=== PATIENT | female | born 1985 | race Caucasian/White ===

== ENCOUNTER 2016-06-19 08:58 | Emergency (ER) | payer OTHER ==
[2016-06-19 09:31] VITALS: BP 112/64; PULSE 68; TEMP 98.1; BMI 26.5
--- NOTE | 2016-06-19 11:29 | PDOC ---
History of Present Illness - General Chief Complaint: Headache Stated Complaint: HEADACHES Time Seen by Provider: 06/19/16 10:10 History Source: Patient Exam Limitations: No Limitations - History of Present Illness Initial Comments: 06/19/16 11:24 cc HEAD ACHE POST FALL WHILE HITTING HEAD SLEILDING X 1 DAY Associated Symptoms: denies: fever/chills, loss of consciousness, nausea/ vomiting, numbness in legs/feet, slurred speech Past History - Past Medical History Allergies/Adverse Reactions: Allergies Allergy/AdvReac Type Severity Reaction Status Date / Time Penicillins Allergy Intermediate Rash Verified 06/19/16 09:27 Home Medications: Ambulatory Orders NK [No Known Home Medication] 06/19/16 Asthma: Yes Other medical history: cyst on brain - Immunization History Immunization Up to Date: Yes - Psycho/Social/Smoking Cessation Hx Anxiety: No Suicidal Ideation: No Smoking History: Never smoked Have you smoked in the past 12 months: No Information on smoking cessation initiated: No Hx Alcohol Use: No Drug/Substance Use Hx: No Substance Use Type: Alcohol Hx Substance Use Treatment: No Review of Systems - Review of Systems Constitutional: No: Symptoms Reported, Chills, Fever, Malaise HEENTM: No: Symptoms Reported Respiratory: No: Symptoms reported, Cough Cardiac (ROS): No: Symptoms Reported Musculoskeletal: Yes: Other (TENDER RIGHT OCCIPUT) Integumentary: No: Symptoms Reported *Physical Exam - Vital Signs Last Vital Signs Temp Pulse Resp BP Pulse Ox 98.1 F 68 20 112/64 100 06/19/16 09:29 06/19/16 09:29 06/19/16 09:29 06/19/16 09:29 06/19/16 09:29 - Physical Exam General Appearance: Yes: Appropriately Dressed. No: Apparent Distress HEENT: negative: TMs Normal Neck: positive: Supple. negative: Tender, Rigid, Tender lateral, Tender midline Respiratory/Chest: positive: Lungs Clear. negative: Chest Tender Integumentary: positive: Bruising Neurologic: positive: records analyst II-XII NML intact, Fully Oriented, Alert. negative: Abnormal Cranial NS, Facial Droop, Numbness, Sensory Deficit ED Treatment Course - ADDITIONAL ORDERS Additional order review: Laboratory Results 06/19/16 10:14 Urine HCG, Qual Negative - RADIOLOGY Radiology Studies Ordered: Category Date Time Status HEAD CT WITHOUT CONTRAST [CT] Stat CT Scan 06/19/16 10:18 Completed Medical Decision Making - Medical Decision Making 06/19/16 11:27 NO SERIAL CHANGES NOTED ON CT SCAN HEAD *DC/Admit/Observation/Transfer Diagnosis at time of Disposition: Minor closed head injury - Discharge Dispostion Disposition: HOME Condition at time of disposition: Stable Admit: No - Patient Instructions Additional Instructions: PLEASE NOTIFY NEUROLOGIST A REPEAT CT SCAN WAS DONE TODAY POST TRAUMA, AND CAN SERVE FOLLOW UP ON EXISTING CYST - Post Discharge Activity Work/School Note: Back to Work
== END 2016-06-19 11:39 | disposition home or self-care (01) ==
LOC: JERFT 08:58
DX: S09.8XXA Other specified injuries of head, initial encounter (principal); W19.XXXA Unspecified fall, initial encounter; Y93.23 Activity, snow (alpine) (downhill) skiing, snowboarding, sledding, tobogganing and snow tubing; Y92.89 Other specified places as the place of occurrence of the external cause
CPT/HCPCS: 70450-TC; 84703; 99281-25

== ENCOUNTER 2017-10-25 07:30 | Day surgery (SDC) | payer OTHER ==
[2017-10-24 11:52] VITALS: BMI 26.4
[2017-10-25] MEDS ORDERED: MIDAZOLAM HCL 2 MG/2 ML SINGLE DOSE VIAL ONE (09:54)
[2017-10-25] MEDS ORDERED: PROPOFOL 20 ML ONE (09:54)
[2017-10-25] MEDS ORDERED: LIDOCAINE HCL/PF 2% SDV 5ML VIAL ONE (10:01)
--- NOTE | 2017-10-25 10:01 | HP ---
History & Physical Update - History History: No Change - Physical Physical: No Change - Assessment Assessment: No Change - Plan Plan: No Change (H & P UPDATED FROM 10/17/17)
[2017-10-25] MEDS ORDERED: CLINDAMYCIN PHOSPHATE 600 MG/4 ML VIAL ONE (10:11)
[2017-10-25] MEDS ORDERED: CLINDAMYCIN 600 MG PREMIX BAG IVPB ONE (10:12)
[2017-10-25] MEDS ORDERED: DEXAMETHASONE SOD PHOSPHATE 4 MG/1 ML VIAL ONE (10:15)
[2017-10-25] MEDS ORDERED: LIDOCAINE HCL 2% JELLY 10 ML CARTRIDGE ONE (10:56)
[2017-10-25] MEDS ORDERED: KETOROLAC TROMETHAMINE 30 MG/1 ML VIAL ONE (11:06)
[2017-10-25] MEDS ORDERED: LIDOCAINE HCL 2% JELLY (5 ML/TUBE) ONE (11:27)
[2017-10-25] MEDS ORDERED: ONDANSETRON 4 MG/2 ML VIAL IVPUSH PRN (11:45)
[2017-10-25] MEDS ORDERED: oxyCODONE HCL 5 MG TABLET PO PRN (11:45)
[2017-10-25] MEDS ORDERED: ACETAMINOPHEN 325 MG TABLET (FP) PO PRN (11:45)
[2017-10-25] MEDS ORDERED: LACTATED RINGERS SOLUTION 1,000 ML IV SCH (11:45)
--- NOTE | 2017-10-25 11:52 | OP ---
Operative Note - Note: Operative Date: 10/25/17 Pre-Operative Diagnosis: Stage IV internal and external hemorrhoids Operation: EUA, MULTI-COLUMN HEMORROIDECTOMY Findings: MULTIPLE COLUMN INTERNAL AND EXTERNAL HEMORRHOIDS - 2 -3 CM IN SIZE WITH PROLAPSE Post-Operative Diagnosis: Same as Pre-op Surgeon: Thanh Ross Anesthesia: General (LMA) Specimens Removed: HEMORRHOIDS Estimated Blood Loss (mls): 30 Operative Report Dictated: Yes
[2017-10-25 13:12] VITALS: TEMP 97.8
[2017-10-25 14:09] VITALS: BP 130/72; PULSE 86
--- NOTE | 2017-10-25 15:02 | OP ---
DATE OF OPERATION: 10/25/2017 PROCEDURE: Examination under anesthesia, 3-column internal and external hemorrhoidectomy. PREOPERATIVE DIAGNOSIS: Stage 4 internal and external hemorrhoids. POSTOPERATIVE DIAGNOSIS: Stage 4 internal and external hemorrhoids. SURGEON: Thanh Ross MD ANESTHESIA: General via laryngeal mask airway. FINDINGS ON PROCEDURE: This is a 32-year-old female who presented 1 month prior with acute prolapse of large internal and external hemorrhoids associated with moderate to severe edema of the perianal tissues. Patient was initially managed nonoperatively with sitz baths, analgesics, and fiber laxatives. Four weeks later, patient presented for followup, and the edema was noted to have resolved. On physical examination, this time, patient has multiple 3-column large prolapsed internal and external hemorrhoids ranging from 2-3 cm in size. So patient was then advised hemorrhoidectomy. Consent was obtained after discussing the risks, benefits, and alternatives of the procedure. DESCRIPTION OF PROCEDURE: Patient was brought to the operating room and placed in supine position. General anesthesia via laryngeal mask airway was administered. The patient was then placed in extended lithotomy position. The perineum was prepped and draped in the usual sterile fashion. Using lidocaine 1% with epinephrine, local anesthesia was injected in the perianal region. A proctosigmoidoscopy was done up to 20 cm from the anal verge, and the rectal mucosa was noted to be unremarkable. Using the lighted anal retractor, the large hemorrhoids were identified, the largest being 3.5 cm at 2 o'clock position. Another 2-cm internal hemorrhoid was noted at the 4 o'clock position, and another 2-cm at the 7 o'clock position. A small internal stage 2 hemorrhoid was noted at the right anterior hemorrhoidal column. Multiple external hemorrhoids/skin tags were noted protruding distal to the internal hemorrhoids. The largest one was addressed first by applying a suture ligature above the anorectal junction using Vicryl 2-0. The internal hemorrhoid together with the external component was then excised using Bovie cautery. The anal epithelium was then closed with a continuous Vicryl 2-0 suture. The 2-cm external hemorrhoid at 12 o'clock position was excised using Bovie cautery. This was partially closed with 1 subcuticular Monocryl 2-0. The 4 o'clock internal hemorrhoid was excised using the submucosal technique by incising the anorectal epithelium using Bovie cautery and removing the submucosal hemorrhoid sharply using Metzembaum scissors. The anorectal epithelium was then closed with continuous Vicryl 2-0 suture. The right posterior hemorrhoid was completely excised again by applying one figure-of-8 Vicryl 2-0 suture the base of the hemorrhoid above the anorectal junction and excising the internal and external components with Bovie cautery. Wound was also closed with a continuous Vicryl 2-0 suture. The right anterior stage 2 hemorrhoid was suture ligated with Vicryl 2-0. Afterwards, the anal canal was carefully inspected and was noted to be free of active bleeding. The anal canal was then lightly packed with Xeroform gauze, and the perianal area was dressed with lidocaine 2% gel. Patient was placed back in supine position and successfully extubated. Patient was transferred to the post-anesthesia care unit in satisfactory position. ESTIMATED BLOOD LOSS: About 30 mL. WOUND CLASS: Contaminated. The patient received 600 mg of clindamycin prior to the start of the procedure. Sariah [id number] MTDD
--- NOTE | 2017-10-29 12:54 | PATH ---
Surgical Pathology Report Patient Name: RIAN LEBLANC [facility]. Rec. #: [id number] /Age/Gender: 1985 (Age: 32) / F Account: [id number] Location: [facility] Taken: 10/25/2017 Received: 10/25/2017 Reported: 10/29/2017 Physicians: Thanh Ross M.D. Specimen(s) Received HEMORRHOIDS Clinical History Stage IV hemorrhoids Final Diagnosis ANUS, HEMORRHOIDS, HEMORRHOIDECTOMY: POLYPOID SQUAMOUS MUCOSA WITH DILATED THICK WALLED CONGESTED SUBMUCOSAL VESSELS CONSISTENT WITH HEMORRHOIDS. Electronically Signed Margo Diamond M.D. Gross Description Received in formalin labeled "hemorrhoids," are 2 castillo portions of skin measuring 2.5 x 1.0 x 0.6 cm and 2.5 x 1.7 x 0.9 cm. The bases are inked blue and the specimens are sectioned. The specimens are entirely submitted in 2 cassettes. /10/25/2017 saudi/10/25/2017
== END 2017-10-25 14:10 | disposition home or self-care (01) ==
LOC: JASU-SURG 07:30
PROVIDERS: ATTEND Surgery
PROC: 06BY0ZC Excision of Hemorrhoidal Plexus, Open Approach (ICD-10-PCS; principal; 2017-10-25 09:00)
DX: K64.3 Fourth degree hemorrhoids (principal); K64.4 Residual hemorrhoidal skin tags
CPT/HCPCS: 84703; 88304-TC; 94760

== ENCOUNTER 2017-10-26 10:24 | Emergency (ER) | payer OTHER ==
[2017-10-26 10:29] VITALS: TEMP 98.2; BMI 27.0
[2017-10-26] MEDS ORDERED: morphine CARPU-JECT 2 MG/1 ML DISP.SYRIN IVPUSH ONE (10:42)
[2017-10-26] MEDS ORDERED: SODIUM CHLORIDE 1,000 ML IV STA (10:42)
[2017-10-26] MEDS ORDERED: morphine SULFATE 4 MG/ML VIAL ONE (11:11)
[2017-10-26 11:23] LABS: BASO % 0.6 % (0-2.0); EOS % 0.6 % (0-4.5); HEMATOCRIT 36.1 % (32.4-45.2); HEMOGLOBIN 12.3 GM/dL (10.7-15.3); LYMPH % 27.2 % (8-40); MCH 30.1 pg (25.7-33.7); MEAN CELL VOLUME 88.8 fl (80-96); MEAN PLT VOLUME 9.5 fl (7.5-11.1); MONO % 5.8 % (3.8-10.2); NEUT % 65.8 % (42.8-82.8); PLATELET COUNT 238 K/MM3 (134-434); RBC 4.07 M/mm3 (3.60-5.2); RDW 12.9 % (11.6-15.6)
--- NOTE | 2017-10-26 12:05 | PDOC ---
History of Present Illness - General Chief Complaint: Rectal Bleed Stated Complaint: POST OP PAIN, RECTAL BLEED Time Seen by Provider: 10/26/17 10:35 History Source: Patient Exam Limitations: No Limitations - History of Present Illness Initial Comments: 10/26/17 12:06 32-year-old female status post hemorrhoidectomy performed by Dr. Thanh Ross yesterday presents the ED with complaints of sudden onset of pain with large amount of bleeding from the surgical site during a sitz bath and attempting to remove the packing. Patient states was told by the postoperative nurse to remove the packing and to do a sitz bath this morning. Patient states saturated 2 sanitary napkins of bright red blood and now has pinkish blood to the third sanitary napkin and severe sharp pain at the surgical site. Patient denies fever , chills and states has not defecated since the surgery. Patient states has been taking the Metamucil and Percocet. Timing/Duration: 1-3 hours Severity: moderate, severe Associated Symptoms: reports: denies symptoms Past History - Past Medical History Allergies/Adverse Reactions: Allergies Allergy/AdvReac Type Severity Reaction Status Date / Time Penicillins Allergy Intermediate Rash Verified 10/26/17 10:25 Home Medications: Ambulatory Orders Acetaminophen [Tylenol] 650 mg PO PRN PRN 10/24/17 Ibuprofen 1 tab PO TID PRN #60 tablet 10/25/17 Lidocaine 5% Top. Ointment [Xylocaine 5% Top. 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 - Surgical History Abdominal Surgery: Yes (ROXANNE MOSLEY 08/2017) Appendectomy: No Cardiac Surgery: No Cholecystectomy: No Lung Surgery: No Neurologic Surgery: No Orthopedic Surgery: No - Immunization History Immunization Up to Date: Yes - Suicide/Smoking/Psychosocial Hx Smoking History: Never smoked Have you smoked in the past 12 months: No Information on smoking cessation initiated: No Hx Alcohol Use: Yes (SOCIALLY) Drug/Substance Use Hx: No Substance Use Type: Alcohol Hx Substance Use Treatment: No Patient Lives Alone: No Lives with/in: spouse/SO Review of Systems - Review of Systems Able to Perform ROS?: No Constitutional: No: Symptoms Reported HEENTM: No: Symptoms Reported Respiratory: No: Symptoms reported Cardiac (ROS): No: Symptoms Reported ABD/GI: Yes: See HPI : No: Symptoms Reported Integumentary: No: Symptoms Reported Neurological: No: Symptoms reported *Physical Exam - Vital Signs Last Vital Signs Temp Pulse Resp BP Pulse Ox 98.2 F 82 18 130/84 96 10/26/17 10:27 10/26/17 10:27 10/26/17 10:27 10/26/17 10:27 10/26/17 10:27 - Physical Exam General Appearance: Yes: Nourished, Appropriately Dressed. No: Apparent Distress HEENT: negative: Pale Conjunctivae Cardiovascular: positive: Regular Rhythm, Regular Rate. negative: Murmur Gastrointestinal/Abdominal: positive: Normal Bowel Sounds, Soft. negative: Distended, Tenderness Rectal Exam: positive: other (Serosanguineous saturated packing noted in rectum. Patient with a 2 x 4 inch circular stain of serosanguineous blood noted on sanitary napkin. Surrounding skin intact.) Extremity: negative: Pedal Edema Integumentary: positive: Normal Color, Warm, Moist Neurologic: positive: Motor Strength 5/5 (ambulatory) Medical Decision Making - Medical Decision Making 10/26/17 11:10 Patient with complaints of sudden onset of rectal pain following by rectal bleeding during a sitz bath. Patient ordered for CBC, IV access, IV fluids and 4 mg of morphine IV push. Called and spoke with Dr. Thanh Ross who feels patient if has normal labs and is improved with morphine may be discharged home to continue postoperative recommendations and not to start sitz bath until tomorrow and actually apply ice instead today. Patient has an appointment next week with him 10/26/17 12:11 Laboratory Tests 10/26/17 11:15 WBC 11.0 H D Hgb 12.3 D Hct 36.1 Plt Count 238 D Neutrophils % 65.8 Patient states feeling much better and able to ambulate without difficulty. Dr. Thanh Ross stopped in to see patient prior to discharge and feels patient may go home without further recommendations *DC/Admit/Observation/Transfer Diagnosis at time of Disposition: Rectal pain - Discharge Dispostion Disposition: HOME Condition at time of disposition: Improved - Referrals - Patient Instructions Printed Discharge Instructions: DI for Hemorrhoids Additional Instructions: My recommendations are not to start sitz bath until tomorrow and actually apply ice to area as much as possible instead today. May take 2 regular strength Tylenol with 1 Percocet as needed for severe pain. Otherwise take the ibuprofen instead for moderate pain. Return to ED at any given time for symptoms worsen. Follow-up with Dr. Thanh Ross next week. - Post Discharge Activity
[2017-10-26 13:01] VITALS: BP 149/62; PULSE 59
== END 2017-10-26 12:55 | disposition home or self-care (01) ==
LOC: JER 10:24
PROC: 3E033NZ Introduction of Analgesics, Hypnotics, Sedatives into Peripheral Vein, Percutaneous Approach (ICD-10-PCS; principal; 2017-10-26)
DX: G89.18 Other acute postprocedural pain (principal); K91.840 Postprocedural hemorrhage of a digestive system organ or structure following a digestive system procedure; K62.89 Other specified diseases of anus and rectum
CPT/HCPCS: 36415; 85025; 96374; 99282-25; J7030

== ENCOUNTER 2018-03-22 14:15 | Emergency (ER) | payer OTHER ==
[2018-03-22 14:19] VITALS: BP 119/83; PULSE 86; TEMP 98.1; BMI 27.0
[2018-03-22] MEDS ORDERED: IBUPROFEN 400 MG TABLET (FP) PO ONE ×2 (14:38)
--- NOTE | 2018-03-22 14:44 | PDOC ---
History of Present Illness - General Chief Complaint: Wound Stated Complaint: CYST Time Seen by Provider: 03/22/18 14:23 History Source: Patient - History of Present Illness Timing/Duration: reports: other (yesterday) Quality: reports: mild Past History - Past Medical History Allergies/Adverse Reactions: Allergies Allergy/AdvReac Type Severity Reaction Status Date / Time Penicillins Allergy Intermediate Rash Verified 03/22/18 14:19 Home Medications: Ambulatory Orders Ibuprofen [Motrin -] 2 tab PO Q6H #30 tablet 03/22/18 Sulfamethoxazole/Trimethoprim [Bactrim Ds -] 1 tab PO BID #14 tablet 03/22/18 Anemia: No Asthma: No (ASTHMA A CHILD) Cancer: No Cardiac Disorders: No CVA: No COPD: No CHF: No DVT: No Dementia: No Diabetes: No GI Disorders: No Disorders: No HTN: No Hypercholesterolemia: No Liver Disease: No Seizures: No Thyroid Disease: No - Surgical History Abdominal Surgery: Yes (ROXANNE MOSLEY 08/2017) Appendectomy: No Cardiac Surgery: No Cholecystectomy: No Lung Surgery: No Neurologic Surgery: No Orthopedic Surgery: No - Immunization History Immunization Up to Date: Yes - Suicide/Smoking/Psychosocial Hx Smoking History: Never smoked Have you smoked in the past 12 months: No Hx Alcohol Use: Yes (SOCIALLY) Drug/Substance Use Hx: No Substance Use Type: Alcohol Hx Substance Use Treatment: No Review of Systems - Review of Systems Constitutional: No: Chills, Fever : Yes: Other (vulvar pain and swelling) *Physical Exam - Vital Signs Last Vital Signs Temp Pulse Resp BP Pulse Ox 98.1 F 86 18 119/83 99 03/22/18 14:17 03/22/18 14:17 03/22/18 14:17 03/22/18 14:17 03/22/18 14:17 - Physical Exam General Appearance: Yes: Appropriately Dressed. No: Apparent Distress HEENT: positive: Normal Voice Neck: positive: Supple Respiratory/Chest: negative: Respiratory Distress Female Pelvic Exam: positive: other (minimal edema to site of R bartholin's, no large induration, no fluctuance, no erythema) Integumentary: positive: Dry, Warm Neurologic: positive: Fully Oriented, Alert, Normal Mood/Affect Medical Decision Making - Medical Decision Making 03/22/18 15:06 32 yo F, no sig hx, here w/ swelling to genitalia sicne yesterday. Minimal pain today. No trauma. No h/o same see exam Possible early bartholin's cyst No e/o overt abscess, no drainable induration at this time Dc w/ warm soaks (warm/hot baths) and abx -to f/u w/ CODING ANALYST in 2 days -reasons to return to ED d/w pt *DC/Admit/Observation/Transfer Diagnosis at time of Disposition: Bartholin cyst - Discharge Dispostion Disposition: HOME Condition at time of disposition: Good - Prescriptions Prescriptions: Ibuprofen [Motrin -] 2 tab PO Q6H #30 tablet Sulfamethoxazole/Trimethoprim [Bactrim Ds -] 1 tab PO BID #14 tablet - Referrals Referrals: Edna White [Primary Care Provider] - - Patient Instructions Printed Discharge Instructions: DI for Bartholin Gland Cyst Additional Instructions: Bartholin's glands are located between your vaginal opening and the labia minora (small lip) on both sides. They have ducts which can become blocked for various reasons leading to cysts and abscesses. Treatment is usually incision and drainage but given minimal amount of swelling and no overt abscess, no Incision and drainage was necessary today. Please soak in warm to hot water frequently throughout the day as discussed and start taking antibiotics as directed. You need to be seen by CODING ANALYST in 2 days. Please call CODING ANALYST at [facility] to make an appointment to be seen. If symptoms worsen and/or you are not able to be seen by CODING ANALYST next week, return to the ER for reassessment and possibly incision and drainage - Post Discharge Activity
== END 2018-03-22 14:47 | disposition home or self-care (01) ==
LOC: JERFT 14:15
DX: N75.0 Cyst of Bartholin's gland (principal)
CPT/HCPCS: 99281-25

== ENCOUNTER 2018-04-03 16:39 | Inpatient (IN) | payer SELFPAY ==
--- NOTE | 2018-04-03 16:44 | PDOC ---
Rapid Medical Evaluation Chief Complaint: Vaginal Sxs Time Seen by Provider: 04/03/18 16:40 Medical Evaluation: Allergies Allergy/AdvReac Type Severity Reaction Status Date / Time Penicillins Allergy Intermediate Rash Verified 03/22/18 14:19 04/03/18 16:41 I have performed a brief in person evaluation of this patient. The patient presents with a CC of: "vaginal cyst" Pt is a 32 Yo female who states she was evaluated here and placed on abx which she has completed and still has the bartholin cyst. 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 No hx. PE: Skin: clear Lungs: Clear Heart: RRR Abd: No pain upon palpation MS: Moves all extremities without difficulty. Psych: Age appropriate. The patient will proceed to the ED for further evaluation. Discharge Disposition - Diagnosis Bartholin cyst - Referrals - Patient Instructions - Post Discharge Activity
--- NOTE | 2018-04-03 16:51 | PDOC ---
History of Present Illness - General Chief Complaint: Vaginal Sxs Stated Complaint: CYST Time Seen by Provider: 04/03/18 16:40 History Source: Patient Exam Limitations: No Limitations - History of Present Illness Initial Comments: 04/03/18 17:14 This is a 32 year old woman with no known medical history who presents with right labia pain, bulging pain, erythema and warmth. She was recently here at [facility] on March 22 for same symptoms. At that time she was prescribed bactrim , which she finished and applied warmed compresses for presumed Bartholin cyst. Has had hemorrhoidectomy at [facility] and here at [place]. She denies fever, chills, sweats, drainage, vaginal discharge, constipation. Past medical history: hemorrhoids Past surgical history: hemorroidectomy Past social history: no tobacco; alcohol; drug use Allergy: penicillin Past History - Past Medical History Allergies/Adverse Reactions: Allergies Allergy/AdvReac Type Severity Reaction Status Date / Time Penicillins Allergy Intermediate Rash Verified 03/22/18 14:19 Anemia: No Asthma: No (ASTHMA A CHILD) Cancer: No Cardiac Disorders: No CVA: No COPD: No CHF: No DVT: No Dementia: No Diabetes: No GI Disorders: No Disorders: No HTN: No Hypercholesterolemia: No Liver Disease: No Seizures: No Thyroid Disease: No - Surgical History Abdominal Surgery: Yes (ROXANNE MOSLEY 08/2017) Appendectomy: No Cardiac Surgery: No Cholecystectomy: No Lung Surgery: No Neurologic Surgery: No Orthopedic Surgery: No - Immunization History Immunization Up to Date: Yes - Suicide/Smoking/Psychosocial Hx Smoking History: Never smoked Have you smoked in the past 12 months: No Hx Alcohol Use: No Drug/Substance Use Hx: No Substance Use Type: Alcohol Hx Substance Use Treatment: No Review of Systems - Review of Systems Able to Perform ROS?: Yes Is the patient limited Ethiopian proficient: Yes Constitutional: No: Chills, Diaphoresis, Fever HEENTM: No: Blurred Vision Respiratory: No: Cough, Shortness of Breath Cardiac (ROS): No: Chest Pain, Edema, Irregular Heart Rate ABD/GI: No: Abdominal Distended, Abd. Pain w/ defecation, Constipated, Diarrhea , Nausea : Yes: Other (vaginal labia pain, swelling). No: Burning, Dysuria, Discharge , Hematuria Integumentary: No: Change in Color Neurological: No: Headache, Numbness, Paresthesia Endocrine: No: Excessive Sweating, Flushing Hematologic/Lymphatic: No: Anemia, Blood Clots *Physical Exam - Vital Signs Last Vital Signs Temp Pulse Resp BP Pulse Ox 98.0 F 93 H 16 127/83 99 04/03/18 16:41 04/03/18 16:41 04/03/18 16:41 04/03/18 16:41 04/03/18 16:41 - Physical Exam General Appearance: Yes: Appropriately Dressed Respiratory/Chest: positive: Lungs Clear, Normal Breath Sounds Cardiovascular: positive: Regular Rhythm, Regular Rate, S1, S2 Female Pelvic Exam: positive: other (there is a right sided induration, erythema , swelling of the abia/perianal area;). negative: discharge, lesions, vaginal bleeding Rectal Exam: positive: other (see attending exam) ED Treatment Course - LABORATORY CBC & Chemistry Diagram: 04/03/18 18:05 04/03/18 18:00 Medical Decision Making - Medical Decision Making 04/03/18 19:00 This is a 32 year old female with a history of hemorrhoids, s/p recent hemorrhoid surgery at [facility], who c/o of right labia pain and swelling, recently treated with Bactrim for presumed Bartholin cyst. As per exam, possible perianal abscess. Will order ct abdomen and pelvis. #right labia swelling/pain; r/o Bartholin cyst,; possible abscess: -cbc, cmp, ua -bhcg negative -abdominal pelvis/ct 04/03/18 20:33 -CT pelvis showing rectal abscess -surgery consulted; keep NPO and will I&D tomorrow -will admit to hospitalist 04/03/18 20:39 04/03/18 21:17 *DC/Admit/Observation/Transfer Diagnosis at time of Disposition: Bartholin cyst, Rectal abscess - Discharge Dispostion Condition at time of disposition: Fair Decision to Admit order: Yes - Referrals Referrals: Edna White [Primary Care Provider] - - Patient Instructions - Post Discharge Activity
--- NOTE | 2018-04-03 17:22 | PDOC ---
Attending Attestation - HPI HPI: 04/03/18 18:11 The patient is a 32 year old female with no significant past medical history who presents to the ED with a wound to her vaginal area for over a week. The patient was seen in the ED last week and was prescribed bactrim for her vaginal wound. Patient comes into the ED today and states her vaginal wound is progressively worsening. She states her vaginal wound is now foul smelling and painful. Patient states she recently got hemorrhoid removal surgery several months ago. Denies fever or chills. Denies nausea or vomiting. Denies dysuria or change in urinary output. Denies any other symptoms. - Physicial Exam PE: 04/03/18 18:11 Constitutional: Awake, alert, oriented. No acute distress. Head: Normocephalic. Atraumatic Eyes: PERRL. EOMI. Conjunctivae are not pale. ENT: Mucous membranes are moist and intact. Posterior pharynx without exudates or erythema. Uvula midline. Neck: Supple. Full ROM. No lymphadenopathy. Cardiovascular: Regular rate. Regular rhythm. S1, S2 regular. Distal pulses are 2+ and symmetric. Pulmonary/Chest: No evidence of respiratory distress. Clear to auscultation bilaterally No wheezing, rales or rhonchi. Abdominal: Soft and non-distended. There is no tenderness. No rebound, guarding or rigidity. No organomegaly. No palpable masses. Good bowel sounds. Back: No CVA tenderness. Musculoskeletal: No edema. No cyanosis. No clubbing. Full range of motion in all extremities. Nocalf tenderness. Radial/pedal pulses are intact and 2+ bilaterally Skin: Skin is warm and dry. No petechiae. No purpura. GENITAL: External genitalia is normal. Right perineal there is a tender fluctuant indurated area, no cellulitis on skin. RECTAL: + rectum is diffusely tender. There is one small external hemorrhoid, not engorged. Can palpate the indurated fluctuant area in the perirectal perineal. Neurological: Alert and oriented to person, place, and time. Cranial nerves II -XII are grossly intact. Normal speech. Strength is grossly symmetric. No sensory deficits. Psychiatric: Good eye contact. Normal interaction, affect and behavior. <Isaias Glass - Last Filed: 04/03/18 18:10> - Resident Resident Name: NavarroJerica - ED Attending Attestation I have performed the following: I have examined & evaluated the patient, The case was reviewed & discussed with the resident, I agree w/resident's findings & plan, Exceptions are as noted - Medical Decision Making 04/03/18 17:22 I, Dr. Emily Leger DO, attest that this document has been prepared under my direction and personally reviewed by me in its entirety. I further attest, that it accurately reflects all work, treatment, procedures and medical decision -making performed by me. 04/03/18 17:53 a/p: 32yo female with recent diagnosis of bartholins cyst and on bactrim x 1 week without resolution or relief of pain -concern for perirectal/perianal/peroneal abscess - recent hemorrhoid surgery at [facility] -palpable from rectal exam -will send labs, cta abd/pelvis -will give ivf hydration and pain control -will monitor and reassess 04/03/18 20:59 pt with perianal abscess the case was discussed with CELINEHOBRANDY Dyson who accepts pt to service call placed to Dr. Yun <Emily Leger - Last Filed: 04/03/18 21:02> Attestations - Attestations 04/03/18 18:11 Documentation prepared by Isaias Glass, acting as medical appointment clerk for Emily Leger DO <Isaias Glass - Last Filed: 04/03/18 18:10>
[2018-04-03] MEDS ORDERED: SODIUM CHLORIDE 0.9% 1000 ML INFUS.BAG IV ONE (17:55)
[2018-04-03] MEDS ORDERED: ACETAMINOPHEN 1000 MG/100 ML VIAL (NON FORMULARY) IVPB ONE (17:55)
[2018-04-03] MEDS ORDERED: ACETAMINOPHEN INJECTION 100 ML IVPB ONE (18:07)
[2018-04-03 18:19] LABS: BASO % 0.5 % (0-2.0); EOS % 2.5 % (0-4.5); HEMATOCRIT 39.8 % (32.4-45.2); HEMOGLOBIN 13.2 GM/dL (10.7-15.3); LYMPH % 22.9 % (8-40); MCH 28.8 pg (25.7-33.7); MCHC 33.1 g/dl (32.0-36.0); MEAN CELL VOLUME 87.1 fl (80-96); MEAN PLT VOLUME 9.8 fl (7.5-11.1); MONO % 4.1 % (3.8-10.2); PLATELET COUNT 295 K/MM3 (134-434); RBC 4.57 M/mm3 (3.60-5.2); RDW 12.9 % (11.6-15.6); WHITE BLOOD COUNT 8.9 K/mm3 (4.0-10.0)
[2018-04-03 18:32] LABS: ALBUMIN 3.7 g/dl (3.4-5.0); ALK PHOS 85 U/L (45-117); ANION GAP 6 MMOL/L (8-16); BILIRUBIN,TOTAL 0.2 mg/dL (0.2-1); BLOOD UREA NITROGEN 12 mg/dL (7-18); CALCIUM 8.9 mg/dL (8.5-10.1); CHLORIDE 107 mmol/L (98-107); CO2 28 mmol/L (21-32); CREATININE 0.7 mg/dL (0.55-1.3); GLUCOSE,RANDOM 84 mg/dL (74-106); POTASSIUM 3.8 mmol/L (3.5-5.1); SGOT/AST 16 U/L (15-37); SGPT/ALT 20 U/L (13-61); SODIUM 141 mmol/L (136-145); TOT PROT 7.6 g/dl (6.4-8.2)
[2018-04-03 18:43] LABS: URINE APPEARANCE SLCLOUDY; URINE BILIRUBIN NEGATIVE (<2.0 mg/dL); URINE COLOR YELLOW; URINE GLUCOSE (UA) NEGATIVE (NEGATIVE); URINE KETONE NEGATIVE (NEGATIVE); URINE LEUK ESTERASE 2+ (NEGATIVE); URINE NITRITE NEGATIVE (NEGATIVE); URINE PROTEIN NEGATIVE (NEGATIVE)
[2018-04-03 18:53] LABS: EPI CELLS MODERATE /HPF (FEW); URINE BACTERIA RARE /hpf (NONE SEEN); URINE MUCUS FEW
[2018-04-03] MEDS ORDERED: SODIUM CHLORIDE 0.9% 500 ML INFUS.BAG IV ONE (21:14)
[2018-04-03] MEDS ORDERED: SODIUM CHLORIDE 1,000 ML IV SCH (21:30)
--- NOTE | 2018-04-03 21:35 | HP ---
Admitting History and Physical - Primary Care Physician PCP: Estee Dyson - Admission Chief Complaint: Labial Swelling and Pain History of Present Illness: This is a 32 y/o woman with a past medical history of recent Hemorrhoidectomy 5- 6 weeks ago. Who presents to the ED with increased pain, swelling to her labia/ buttocks x one week. Patient reports being seen in the FT for same and d/cd with Bactrim. Patient reports having increased pain, swelling and a foul odor from the vaginal fold. Patient denies fever, chills, cough SOB, CP, AP, N/V/D, constipation, dysuria. 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) Pulmonary: Yes: Asthma ...: No - Past Surgical History Additional Past Surgical History: Hemorrhoidectomy - Smoking History Smoking history: Never smoked Have you smoked in the past 12 months: No - Alcohol/Substance Use Hx Alcohol Use: No History of Substance Use: reports: None - Social History Usual Living Arrangement: Yes: With Significant Other, With Child ADL: Independent History of Recent Travel: No Home Medications - Allergies Allergies/Adverse Reactions: Allergies Allergy/AdvReac Type Severity Reaction Status Date / Time Penicillins Allergy Intermediate Rash Verified 03/22/18 14:19 Family Disease History - Family Disease History Family Disease History: Heart Disease: Grandparent, Father (HTN), Mother (HTN) Review of Systems - Review of Systems Constitutional: reports: No Symptoms Eyes: reports: No Symptoms HENT: reports: No Symptoms Neck: reports: No Symptoms Cardiovascular: reports: No Symptoms Respiratory: reports: No Symptoms Gastrointestinal: reports: No Symptoms Genitourinary: reports: Other (labial swelling, pain, discharge) Breasts: reports: No Symptoms Reported Musculoskeletal: reports: No Symptoms Neurological: reports: No Symptoms Endocrine: reports: No Symptoms Hematology/Lymphatic: reports: No Symptoms Psychiatric: reports: No Symptoms Physical Examination Vital Signs: Vital Signs Temperature 98.0 F 04/03/18 16:41 Pulse Rate 93 H 04/03/18 16:41 Respiratory Rate 16 04/03/18 16:41 Blood Pressure 127/83 04/03/18 16:41 O2 Sat by Pulse Oximetry (%) 99 04/03/18 16:41 Neck: Yes: WNL, Supple, Trachea Midline Cardiovascular: Yes: WNL, Regular Rate and Rhythm, S1, S2 Respiratory: Yes: WNL, Regular, CTA Bilaterally Gastrointestinal: Yes: WNL, Normal Bowel Sounds, Soft ...Rectal Exam: Yes: Other (erythema, fluctuance to right perineal) Renal/: Yes: Other (TN, swelling to right) Breast(s): Yes: WNL Musculoskeletal: Yes: WNL Extremities: Yes: WNL Edema: No Peripheral Pulses WNL: Yes Neurological: Yes: WNL, Alert, Oriented ...Motor Strength: WNL Psychiatric: Yes: WNL, Alert, Oriented Labs: CBC, BMP 04/03/18 18:05 04/03/18 18:00 Imaging - Results Cat Scan: Report Reviewed, Image Reviewed Problem List - Problems (1) Bartholin cyst Assessment/Plan: Warm compress CTAP- reviewed Surgeon consulted by ED resident Monitor CBC, BMP Monitor vitals Code(s): N75.0 - CYST OF BARTHOLIN'S GLAND (2) Rectal abscess Assessment/Plan: Blood Cultures- pending Urine Culture-pending CTAP- 3x1.3x0.9 perianal abscess Given Zosyn in ED Surgeon consulted by ED resident Will keep pt NPO IVF Morphine Sulfate prn Repeat CBC, BMP in am Monitor vitals Assessment/Plan 32 y/o young woman with a PMHx of Hemorrhoids, Hemorrhoidectomy (5-6 weeks ago) . Admitted to M/S for Perineal Abscess, Bartholin Cyst for for further evaluation of their emergent condition. FEN D51/2NS@83ml/hr Replete lytes prn NPO DVT ppx OOB SCDs Dispo: Requires Inpatient Care Visit type - Emergency Visit Emergency Visit: Yes ED Registration Date: 04/03/18 Care time: The patient presented to the Emergency Department on the above date and was hospitalized for further evaluation of their emergent condition. - New Patient This patient is new to me today: Yes Date on this admission: 04/03/18 - Critical Care Critical Care patient: No
[2018-04-03] MEDS: DEXTROSE 5%-0.45% SALINE 1,000 ML IV SCH (22:27)
[2018-04-03 23:23] VITALS: BMI 28.9
[2018-04-04] MEDS ORDERED: ACETAMINOPHEN 1000 MG/100 ML VIAL (NON FORMULARY) IVPB PRN (01:58)
[2018-04-04] MEDS ORDERED: MORPHINE SULFATE 2 MG/ML VIAL IVPUSH PRN (01:58)
[2018-04-04] MEDS: DEXTROSE 5%-0.45% SALINE 1,000 ML IV SCH ×2 (06:16→14:20)
--- NOTE | 2018-04-04 08:25 | PN ---
Progress Note (short form) - Note Progress Note: Surgery 32 yo female with HX of hemroidectomy with Dr Ross on 10/25/17. Presented to ED on 03/22/18 with pain in the vulva and was diagnosed with a barthilon cyst. The patient was discharged on Bactrim x 14 days, instructed to take Sitz baths and follow up with GLASS CUT OFF SUPERVISOR in 2 days but she did not follow up. The pain and swelling became worse and she returned to the ED on 04/03/18. A CT scan of the ABD/Pelvis was read as a perianal abscess. The patient has been NPO since last night. She denies any CP, SOB, fever or chills associated with the onset. Vital Signs Temp 98.0 F 04/04/18 06:24 Pulse 69 04/04/18 06:24 Resp 20 04/04/18 06:24 BP 104/62 04/04/18 06:24 Pulse Ox 99 04/03/18 16:41 Intake & Output 04/03/18 04/03/18 04/04/18 11:59 23:59 11:59 Intake Total 100 1000 Balance 100 1000 Weight 158 lb 1.6 oz Intake: IV 1000 D5-1/2Ns - 1,000 ml @ 100 1000 mls/hr IV ASDIR OLIVIA Rx#: [id number] Oral 100 0 Other: Voiding Method Toilet Toilet # Unmeasured Voids Void 2 3 Height 5 ft 2 in Body Mass Index (BMI) 28.9 Weight Measurement Method Est/Stated by Patient PE: A&Ox3, NAD Unlabored resp on RA Pelvis: indurration and pain on palpation along the right labia majora extending to perineum. No sinus track or d/c seen, no foul smell noted. no visible or palpable collection noted at or around anus. no other painful areas at perineum. A/p 32 yo with Perianal abscess vs barthilon cyst. Surgical team spoke with both Dr Ross and Dr Yun regarding this patient and the recommendation was made to consult GLASS CUT OFF SUPERVISOR. 1) GLASS CUT OFF SUPERVISOR consult- I spoke with Dulce Maria Negro regarding consult 2) Keep NPO- patient reminded not to eat or drink 3) OOb as tolerated 4) Pain control 5) surgery to follow
[2018-04-04 09:01] LABS: BASO % 0.4 % (0-2.0); EOS % 3.6 % (0-4.5); HEMATOCRIT 34.2 % (32.4-45.2); HEMOGLOBIN 11.3 GM/dL (10.7-15.3); LYMPH % 31.1 % (8-40); MCH 28.8 pg (25.7-33.7); MCHC 33.1 g/dl (32.0-36.0); MEAN CELL VOLUME 87.2 fl (80-96); MEAN PLT VOLUME 9.8 fl (7.5-11.1); NEUT % 59.9 % (42.8-82.8); PLATELET COUNT 233 K/MM3 (134-434); RBC 3.92 M/mm3 (3.60-5.2); RDW 12.9 % (11.6-15.6); WHITE BLOOD COUNT 6.4 K/mm3 (4.0-10.0)
[2018-04-04 09:24] LABS: ANION GAP 6 MMOL/L (8-16); BLOOD UREA NITROGEN 6 mg/dL (7-18); CALCIUM 7.7 mg/dL (8.5-10.1); CHLORIDE 110 mmol/L (98-107); CO2 23 mmol/L (21-32); CREATININE 0.3 mg/dL (0.55-1.3); GLUCOSE,RANDOM 79 mg/dL (74-106); POTASSIUM 3.8 mmol/L (3.5-5.1); SODIUM 140 mmol/L (136-145)
--- NOTE | 2018-04-04 09:58 | PN ---
Progress Note, Physician - Current Medication List Current Medications: Active Medications Acetaminophen (Ofirmev Injection -) 1,000 mg IVPB Q6H PRN PRN Reason: FEVER Dextrose/Sodium Chloride (D5-1/2ns -) 1,000 mls @ 100 mls/hr IV ASDIR OLIVIA Last Admin: 04/04/18 06:16 Dose: 100 mls/hr Morphine Sulfate (Morphine Sulfate) 2 mg IVPUSH Q6H PRN PRN Reason: PAIN LEVEL 7 - 10 - Objective Vital Signs: Vital Signs Temperature 98.0 F 04/04/18 06:24 Pulse Rate 69 04/04/18 06:24 Respiratory Rate 20 04/04/18 06:24 Blood Pressure 104/62 04/04/18 06:24 O2 Sat by Pulse Oximetry (%) 99 04/03/18 16:41 Labs: CBC, BMP 04/04/18 06:50 04/04/18 06:50 Problem List - Problems (1) Bartholin cyst Assessment/Plan: : Warm compress CTAP- reviewed Surgeon consulted Monitor CBC, BMP Monitor vitals Code(s): N75.0 - CYST OF BARTHOLIN'S GLAND (2) Rectal abscess Assessment/Plan: Blood Cultures- pending Urine Culture-pending CTAP- 3x1.3x0.9 perianal abscess Given Zosyn in ED Surgeon consulted by ED resident Will keep pt NPO IVF Morphine Sulfate prn Repeat CBC, BMP in am Monitor vitals
--- NOTE | 2018-04-04 12:00 | PN ---
Progress Note (short form) - Note Progress Note: Attending Surgeon Patient seen and evaluated; chart reviewed; imaging reviewed. IMP: perineal soft tissue abscess PLAN: EUA; I and D; r/b/t/a/'s d/w the patient who agrees to surgery. Solo Yun MD FACS
--- NOTE | 2018-04-04 12:41 | CONSULT ---
Consult Consult Specialty:: Surgery Reason for Consultation:: ?Rectal abscess - History of Present Illness Chief Complaint: R vulvar pain History of Present Illness: 32yo here with R vulvar pain. States she regularly shaves the area, noticed a small bump one week ago. Not particularly tender. 2-3 days later noticed more irritation at panty line, felt that bump/swelling was more pronounced. Seen in ER, given Bactrim course and advised Sitz baths. Did not follow up in the 2 days after as recommended with BACK DIGGER OPERATOR. Returned to ER for pain yesterday evening. Never had Bartholin's cyst- previously. No history of pelvic infections, just UTIs. H/O hemorrhoids and is s/p excision in October [address] 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) Pulmonary: Yes: Asthma Hepatobiliary: No: Cirrhosis, Cholelithiasis, Cholecystitis, Choledocholithiasis , Hepatitis A, Hepatitis B, Hepatitis C, Other Renal/: Yes: UTI Reproductive: No: Ectopic , Endometriosis, Fibroids, PID, Polycystic Ovary Syndrome, Postmenopausal, Other ...LMP: 10/22/17 ...: No ...: 3 ...Para: 3 Infectious Disease: No: AIDS, C-Diff, Herpes Zoster, HIV, MRSA, STD's, Tuberculosis, VREF, Other Dermatology: No: Basal Cell, Cellulitis, Eczema, Melanoma, Psoriasis, Squamous Cell, Other - Past Surgical History Past Surgical History: Yes: None, Additional Surgical History: Hemorrhoidectomy 10/2017 - Alcohol/Substance Use Hx Alcohol Use: No History of Substance Use: reports: None - Smoking History Smoking history: Never smoked Have you smoked in the past 12 months: No Aproximately how many cigarettes per day: 0 - Social History Usual Living Arrangement: With Spouse ADL: Independent History of Recent Travel: No Home Medications - Allergies Allergies/Adverse Reactions: Allergies Allergy/AdvReac Type Severity Reaction Status Date / Time Penicillins Allergy Intermediate Rash Verified 03/22/18 14:19 Family Disease History - Family Disease History Family Disease History: Heart Disease: Grandparent, Father (HTN), Mother (HTN) Physical Exam Vital Signs: Vital Signs Temperature 98.0 F 04/04/18 06:24 Pulse Rate 69 11/02/18 06:24 Respiratory Rate 20 04/04/18 09:00 Blood Pressure 104/62 04/04/18 06:24 O2 Sat by Pulse Oximetry (%) 99 04/03/18 16:41 Constitutional: Yes: Well Nourished Integumentary: Yes: Erythema (NEFG, normal appearing labia, R vulvar area slightly erythematous, tender to touch, no well circumscribed mass appreciated. Rectal exam deferred as previously done by General Surgeon) Labs: CBC, BMP 04/04/18 06:50 04/04/18 06:50 Assessment/Plan 32yo here with perianal abscess Exam not consistent with Bartholin's cyst, imaging reviewed and shows perianal abscess. Evaluated by Gen Surg team with plan to go to OR for treatment Advised to follow up with BACK DIGGER OPERATOR as outpatient for routine care. Dion Negro MD
[2018-04-04] MEDS ORDERED: MIDAZOLAM HCL 2 MG/2 ML SINGLE DOSE VIAL ONE (14:59)
[2018-04-04] MEDS ORDERED: PROPOFOL 20 ML ONE (15:02)
[2018-04-04] MEDS ORDERED: ONDANSETRON 4 MG/2 ML VIAL IVPUSH PRN ×2 (15:38→16:20)
[2018-04-04] MEDS ORDERED: LACTATED RINGERS SOLUTION 1,000 ML IV SCH (15:45)
--- NOTE | 2018-04-04 16:38 | OP ---
Operative Note - Note: Operative Date: 04/04/18 Pre-Operative Diagnosis: perianal abscess Operation: EUA/I and D perianal abscess Findings: right perianal abscess Post-Operative Diagnosis: Same as Pre-op Surgeon: Solo Yun Anesthesiologist/SPORTS MARKETING COORDINATOR: Anh Stanton MD Anesthesia: General Estimated Blood Loss (mls): 5 Drains & Tubes with Location: 1/2 " iodoform packing
--- NOTE | 2018-04-04 18:22 | CON.ID ---
Consult Consult Specialty:: infectious disease Referred by:: dr damian Reason for Consultation:: antibiotics - History of Present Illness Chief Complaint: pain and discomfort having a bm last one week History of Present Illness: recently seen in Ed 03/22 for possible infected bartholin cyst- given bactrim for 7 days symptoms and pain worsened no fevers or chills no nausea or vomiting no dysuria difficulty with BM, hard and painful recent hemorrhoid surgery 10/25/[address] ledezma penicillin allergy- rash- skin changed color? 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) Pulmonary: Yes: Asthma Gastrointestinal: Yes: Other (fatty liver) Hepatobiliary: No: Cirrhosis, Cholelithiasis, Cholecystitis, Choledocholithiasis , Hepatitis A, Hepatitis B, Hepatitis C, Other Renal/: Yes: UTI ...LMP: 10/22/17 ...: No Infectious Disease: No: AIDS, C-Diff, Herpes Zoster, HIV, MRSA, STD's, Tuberculosis, VREF, Other Dermatology: No: Basal Cell, Cellulitis, Eczema, Melanoma, Psoriasis, Squamous Cell, Other - Past Surgical History Past Surgical History: Yes: None, Additional Surgical History: Hemorrhoidectomy 10/2017 - Alcohol/Substance Use Hx Alcohol Use: No History of Substance Use: reports: None - Smoking History Smoking history: Current every day smoker Have you smoked in the past 12 months: Yes Aproximately how many cigarettes per day: 0 - Social History Usual Living Arrangement: With Spouse ADL: Independent 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, 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 Place of : [facility] (raised in and [place]) History of Recent Travel: No Home Medications - Allergies Allergies/Adverse Reactions: Allergies Allergy/AdvReac Type Severity Reaction Status Date / Time Penicillins Allergy Intermediate Rash Verified 03/22/18 14:19 Family Disease History - Family Disease History Family Disease History: Heart Disease: Grandparent, Father (HTN), Mother (HTN) Review of Systems - Review of Systems Constitutional: reports: No Symptoms Eyes: reports: No Symptoms HENT: reports: No Symptoms Neck: reports: No Symptoms Cardiovascular: reports: No Symptoms Respiratory: reports: No Symptoms Gastrointestinal: reports: Constipation Genitourinary: reports: No Symptoms Physical Exam Vital Signs: Vital Signs Temperature 98.2 F 04/04/18 17:30 Pulse Rate 69 04/04/18 17:30 Respiratory Rate 16 04/04/18 17:30 Blood Pressure 110/66 04/04/18 17:30 O2 Sat by Pulse Oximetry (%) 96 04/04/18 16:30 Constitutional: Yes: Well Nourished, No Distress, Calm Eyes: Yes: Conjunctiva Clear HENT: Yes: Atraumatic, Normocephalic. No: Thrush Neck: Yes: Supple, Trachea Midline Cardiovascular: Yes: Regular Rate and Rhythm Respiratory: Yes: Regular, CTA Bilaterally Gastrointestinal: Yes: Normal Bowel Sounds, Soft, Other (just post op didnot examine perianal area) Edema: No Labs: CBC, BMP 04/04/18 06:50 04/04/18 06:50 Imaging - Results Cat Scan: Report Reviewed (right perianal abscess 3 by 1.3 by .9) Problem List - Problems (1) Perianal abscess Code(s): K61.0 - ANAL ABSCESS (2) Penicillin allergy Code(s): Z88.0 - ALLERGY STATUS TO PENICILLIN Assessment/Plan cultures sent start clindamycin and azactam f/u cultures in am clinically appears well
[2018-04-04] MEDS: CLINDAMYCIN 600MG PREMIX IVPB 600 MG/50 ML BAG IVPB SCH (19:02)
[2018-04-04] MEDS: AZTREONAM 1 GM in DEXTROSE 5%-WATER - 50 ML IVPB SCH (19:54)
[2018-04-05] MEDS: AZTREONAM 1 GM in DEXTROSE 5%-WATER - 50 ML IVPB SCH ×3 (02:13→17:52)
[2018-04-05] MEDS: CLINDAMYCIN 600MG PREMIX IVPB 600 MG/50 ML BAG IVPB SCH ×3 (02:47→17:01)
[2018-04-05] MEDS: DEXTROSE 5%-0.45% SALINE 1,000 ML IV SCH ×2 (03:14→16:54)
[2018-04-05] MEDS: ACETAMINOPHEN 325 MG TABLET (FP) PO PRN ×4 (03:15→18:26)
--- NOTE | 2018-04-05 08:56 | PN ---
Progress Note (short form) - Note Progress Note: ANESTHESIOLOGY POST-OP CHECK 32F s/p I&D perirectal abscess under general anesthesia, POD #1: no acute complaints, denies N/V, pain 6-7.5/10 and tolerable. Vital Signs Temperature 98.1 F 04/05/18 06:00 Pulse Rate 64 04/05/18 06:00 Respiratory Rate 18 04/04/18 22:00 Blood Pressure 103/46 L 04/05/18 06:00 O2 Sat by Pulse Oximetry (%) 96 04/04/18 21:00 Active Medications Acetaminophen (Tylenol -) 650 mg PO Q6H PRN PRN Reason: Fever Or Pain Last Admin: 04/05/18 03:15 Dose: 650 mg Dextrose/Sodium Chloride (D5-1/2ns -) 1,000 mls @ 100 mls/hr IV ASDIR OLIVIA Last Admin: 04/05/18 03:14 Dose: 100 mls/hr Clindamycin Phosphate (Cleocin 600 Mg Premix Ivpb -) 600 mg in 50 mls @ 100 mls /hr IVPB Q8H-IV OLIVIA; Protocol Last Admin: 04/05/18 02:47 Dose: 100 mls/hr Aztreonam 1 gm/ Dextrose 50 mls @ 100 mls/hr IVPB Q8H-IV OLIVIA; Protocol Last Admin: 04/05/18 02:13 Dose: 100 mls/hr Gen: awake, alert No apparent anesthesia complications. Pain controlled. Continue management as per primary team.
--- NOTE | 2018-04-05 10:55 | PN ---
Progress Note (short form) - Note Progress Note: Attending Surgeon POD#1 Minimal post op pain VSS AF wound-packing d/c'ed; no active drainage/no induration; o/w negative c/s pending IMP: doing well PLAN: LWC rendered; orders place; patient instructed; stable from surgical point of view for OPD f/u. Solo Yun MD FACS
[2018-04-05] MEDS: oxyCODONE HCL 5 MG TABLET PO PRN ×2 (10:56→18:26)
--- NOTE | 2018-04-05 11:10 | PN ---
Progress Note, Physician - Current Medication List Current Medications: Active Medications Acetaminophen (Tylenol -) 650 mg PO Q6H PRN PRN Reason: Fever Or Pain Last Admin: 04/05/18 09:50 Dose: 650 mg Acetaminophen (Tylenol -) 325 mg PO Q6H PRN PRN Reason: PAIN LEVEL 6-10 Last Admin: 04/05/18 10:56 Dose: 325 mg Dextrose/Sodium Chloride (D5-1/2ns -) 1,000 mls @ 100 mls/hr IV ASDIR OLIVIA Last Admin: 04/05/18 03:14 Dose: 100 mls/hr Clindamycin Phosphate (Cleocin 600 Mg Premix Ivpb -) 600 mg in 50 mls @ 100 mls /hr IVPB Q8H-IV OLIVIA; Protocol Last Admin: 04/05/18 09:11 Dose: 100 mls/hr Aztreonam 1 gm/ Dextrose 50 mls @ 100 mls/hr IVPB Q8H-IV OLIVIA; Protocol Last Admin: 04/05/18 10:48 Dose: 100 mls/hr Oxycodone HCl (Roxicodone -) 5 mg PO Q6H PRN PRN Reason: PAIN LEVEL 6-10 Last Admin: 04/05/18 10:56 Dose: 5 mg - Objective Vital Signs: Vital Signs Temperature 98.0 F 04/05/18 11:04 Pulse Rate 60 04/05/18 11:04 Respiratory Rate 18 04/05/18 11:04 Blood Pressure 108/55 L 04/05/18 11:04 O2 Sat by Pulse Oximetry (%) 99 04/05/18 10:00 Cardiovascular: Yes: S1, S2 Respiratory: Yes: Regular, CTA Bilaterally Gastrointestinal: Yes: Normal Bowel Sounds, Soft Labs: CBC, BMP 04/04/18 06:50 04/04/18 06:50 Problem List - Problems (1) Bartholin cyst Assessment/Plan: : Warm compress CTAP- reviewed Surgeon consulted Monitor CBC, BMP Monitor vitals Code(s): N75.0 - CYST OF BARTHOLIN'S GLAND (2) Rectal abscess Assessment/Plan: Blood Cultures- pending Microbiology 04/03/18 02:00 Urine - Urine Clean Catch Urine Culture - Final 04/04/18 07:45 Blood - Peripheral Venous Blood Culture - Preliminary NO GROWTH OBTAINED AFTER 24 HOURS, INCUBATION TO CONTINUE FOR 4 DAYS. 04/04/18 06:50 Blood - Peripheral Venous Blood Culture - Preliminary NO GROWTH OBTAINED AFTER 24 HOURS, INCUBATION TO CONTINUE FOR 4 DAYS. CTAP- 3x1.3x0.9 perianal abscess Operative Date: 04/04/18 Pre-Operative Diagnosis: perianal abscess Operation: EUA/I and D perianal abscess Findings: right perianal abscess Post-Operative Diagnosis: Same as Pre-op Surgeon: Solo Yun PER ID
--- NOTE | 2018-04-05 12:35 | PN ---
Progress Note (short form) - Note Progress Note: complaints Vital Signs Period Temp Pulse Resp BP Sys/Abraham Pulse Ox Last 24 Hr 97.5 F-98.6 F 56-76 12-18 95-115/46-66 96-99 cor-rrr lungs clear abd soft,nt ext no edema wound with minimal erythema, serous drainage CBC, BMP 04/04/18 06:50 04/04/18 06:50 Microbiology 04/03/18 02:00 Urine - Urine Clean Catch Urine Culture - Final 04/04/18 07:45 Blood - Peripheral Venous Blood Culture - Preliminary NO GROWTH OBTAINED AFTER 24 HOURS, INCUBATION TO CONTINUE FOR 4 DAYS. 04/04/18 06:50 Blood - Peripheral Venous Blood Culture - Preliminary NO GROWTH OBTAINED AFTER 24 HOURS, INCUBATION TO CONTINUE FOR 4 DAYS. abscess culture pending a/p s/p drainage perineal abscess pen allergy clindamycin/azactam suspect home tomorrow after cultures are back Problem List - Problems (1) Perianal abscess Code(s): K61.0 - ANAL ABSCESS (2) Penicillin allergy Code(s): Z88.0 - ALLERGY STATUS TO PENICILLIN
[2018-04-06] MEDS ORDERED: PT OWN MED DRAWER 7, Y5N ONE ×2 (01:12→09:08)
[2018-04-06] MEDS: AZTREONAM 1 GM in DEXTROSE 5%-WATER - 50 ML IVPB SCH ×2 (01:16→09:23)
[2018-04-06] MEDS: CLINDAMYCIN 600MG PREMIX IVPB 600 MG/50 ML BAG IVPB SCH ×2 (01:54→10:09)
[2018-04-06] MEDS: DEXTROSE 5%-0.45% SALINE 1,000 ML IV SCH (08:12)
[2018-04-06] MEDS: ACETAMINOPHEN 325 MG TABLET (FP) PO PRN (09:31)
[2018-04-06] MEDS: oxyCODONE HCL 5 MG TABLET PO PRN (09:31)
[2018-04-06 11:38] VITALS: BP 101/45; PULSE 64; TEMP 98.3
--- NOTE | 2018-04-06 11:39 | PN ---
Progress Note (short form) - Note Progress Note: no complaints sitz baths Vital Signs Period Temp Pulse Resp BP Sys/Abraham Pulse Ox Last 24 Hr 97.9 F-98.4 F 57-80 18-18 108-142/62-74 99 cor-rrr lungs clear wound is clean no drainage CBC, BMP 04/04/18 06:50 04/04/18 06:50 Microbiology 04/04/18 15:15 Abscess Gram Stain - Final 04/04/18 15:15 Abscess Wound Culture - Preliminary Non Lactose Fermenting Gnb-ID pending 04/04/18 07:45 Blood - Peripheral Venous Blood Culture - Preliminary NO GROWTH OBTAINED AFTER 48 HOURS, INCUBATION TO CONTINUE FOR 3 DAYS. 04/04/18 06:50 Blood - Peripheral Venous Blood Culture - Preliminary NO GROWTH OBTAINED AFTER 48 HOURS, INCUBATION TO CONTINUE FOR 3 DAYS. 04/03/18 02:00 Urine - Urine Clean Catch Urine Culture - Final a/p s/p drainage perineal abscess pen allergy-unknown can switch to po levaquin 500 daily and flagyl 500 tid for total 5 days f/u PMD Problem List - Problems (1) Perianal abscess Code(s): K61.0 - ANAL ABSCESS (2) Penicillin allergy Code(s): Z88.0 - ALLERGY STATUS TO PENICILLIN
--- NOTE | 2018-04-06 12:17 | DS ---
Physical Examination Vital Signs: Vital Signs Temperature 98.3 F 04/06/18 09:00 Pulse Rate 64 04/06/18 09:00 Respiratory Rate 18 04/06/18 09:00 Blood Pressure 101/45 L 04/06/18 09:00 O2 Sat by Pulse Oximetry (%) 9 L 04/06/18 09:00 Cardiovascular: Yes: Regular Rate and Rhythm Respiratory: Yes: Regular, CTA Bilaterally Gastrointestinal: Yes: Normal Bowel Sounds, Soft. No: Tenderness Labs: CBC, BMP 04/04/18 06:50 04/04/18 06:50 Discharge Summary Reason For Visit: ABSCESS OF RECTUM Current Active Problems Bartholin cyst (Acute) Penicillin allergy (Acute) Perianal abscess (Acute) Rectal abscess (Acute) Hospital Course: - Problems (1) Bartholin cyst Assessment/Plan: : Warm compress CTAP- reviewed Surgeon consulted Monitor CBC, BMP Monitor vitals Code(s): N75.0 - CYST OF BARTHOLIN'S GLAND (2) Rectal abscess Assessment/Plan: Blood Cultures- pending Microbiology 04/03/18 02:00 Urine - Urine Clean Catch Urine Culture - Final 04/04/18 07:45 Blood - Peripheral Venous Blood Culture - Preliminary NO GROWTH OBTAINED AFTER 24 HOURS, INCUBATION TO CONTINUE FOR 4 DAYS. 04/04/18 06:50 Blood - Peripheral Venous Blood Culture - Preliminary NO GROWTH OBTAINED AFTER 24 HOURS, INCUBATION TO CONTINUE FOR 4 DAYS. CTAP- 3x1.3x0.9 perianal abscess Operative Date: 04/04/18 Pre-Operative Diagnosis: perianal abscess Operation: EUA/I and D perianal abscess Findings: right perianal abscess Post-Operative Diagnosis: Same as Pre-op Surgeon: Solo Yun ABX PER ID Condition: Improved - Instructions Referrals: Edna White [Primary Care Provider] - 1 Week Solo Yun MD [Staff Physician] - 1 Week - Home Medications Comprehensive Discharge Medication List: Ambulatory Orders Ciprofloxacin [Cipro (Restricted To Id)] 250 mg PO BID #10 tablet 04/06/18 metroNIDAZOLE [Flagyl -] 500 mg PO TID #15 tablet 04/06/18
--- NOTE | 2018-04-06 21:48 | OP ---
DATE OF OPERATION: 04/04/2018 PREOPERATIVE DIAGNOSIS: Perianal abscess. POSTOPERATIVE DIAGNOSIS: Perianal abscess. PROCEDURE: Incision and drainage of perianal abscess and examination under anesthesia. SURGEON: Solo Yun MD ANESTHESIA: General. OPERATIVE FINDINGS: There was a right-sided perianal abscess. The rest of the findings were unremarkable. PROCEDURE: The patient was placed on the operating table in the supine position. After the induction of general anesthesia, she was placed in the dorsal lithotomy position. The perineum, buttocks, and lower abdomen were prepped with betadine and draped in a sterile fashion. Examination under anesthesia was done, which was unremarkable for any rectal mass or palpable anorectal canal pathology. Then, over the area of fluctuance in the right perianal area, incision was made with a scalpel and taken down through the skin and subcutaneous tissue. Purulent drainage was obtained. This was sent for culture and sensitivity. All loculations were broken up using blunt dissection and copious irrigation was carried out with saline and peroxide in a 50-50 mixture. Hemostasis was secured with electrocautery and the wound was packed with half-inch iodoform gauze followed by dry sterile dressings. The procedure terminated at this point. The patient was aroused from general anesthesia and transferred to the postanesthesia care unit in stable condition, awake and alert. ESTIMATED BLOOD LOSS: 5 mL. REPLACEMENT: Crystalloid. DRAINS: Iodoform packing. SPECIMEN: Culture and sensitivity to Microbiology. I, Solo Yun, was physically present in the operating room from the time the patient was placed on the operating table until she was transferred to the postanesthesia care unit unaccompanied. MD SABINE Noyola/[id number] MTDD
--- NOTE | 2018-04-07 10:35 | EKG ---
Test Reason : Blood Pressure : / mmHG Vent. Rate : 055 BPM Atrial Rate : 055 BPM P-R Int : 164 ms QRS Dur : 096 ms QT Int : 380 ms P-R-T Axes : 023 033 011 degrees QTc Int : 363 ms SINUS BRADYCARDIA WITH SINUS ARRHYTHMIA OTHERWISE NORMAL ECG NO PREVIOUS ECGS AVAILABLE Confirmed by MANA MURPHY MD ([id number]) on 04/07/2018 10:35:29 AM Referred By: Confirmed By:MANA MURPHY MD
== END 2018-04-06 14:51 | disposition home or self-care (01) | DRG 254 ==
LOC: JER 16:39 → JERBED 20:37 → J6S 22:11
PROVIDERS: ADMIT Internal Medicine; ATTEND Family Medicine
PROC: 0D9Q0ZX Drainage of Anus, Open Approach, Diagnostic (ICD-10-PCS; principal; 2018-04-04 14:30)
DX: K61.0 Anal abscess (principal); N75.0 Cyst of Bartholin's gland; Z88.0 Allergy status to penicillin
CPT/HCPCS: 36415; 74177-TC; 80048; 80053; 81003; 81015; 84703; 85025; 87040; 87070; 87086; 87186; 87205; 93005; 93010; 94760; 99283-25; J0131; J7030

== ENCOUNTER 2023-01-17 22:00 | Emergency (ER) | payer OTHER ==
[2023-01-17 22:13] VITALS: BP 117/77; PULSE 68; RESP 18; TEMP 98.6; BMI 28.5
[2023-01-17] MEDS ORDERED: ACETAMINOPHEN 325 MG TABLET (FP) PO ONE (22:43)
[2023-01-17] MEDS ORDERED: LIDOCAINE 5% TOPICAL PATCH TP ONE (22:43)
[2023-01-17] MEDS ORDERED: ACETAMINOPHEN 325 MG TABLET (FP) ONE (22:45)
[2023-01-17] MEDS ORDERED: LIDOCAINE 5% TOPICAL PATCH ONE (22:45)
[2023-01-17 23:04] LABS: EPI CELLS >36 /uL (0-25.1); HYALINE CASTS 1 /uL (0-3.1); PH,URINE 5.5 (5.0-8.0); URINE APPEARANCE CLOUDY; URINE BACTERIA 147 /uL (0-1359); URINE BILIRUBIN NEGATIVE (NEGATIVE); URINE COLOR YELLOW; URINE GLUCOSE (UA) NEGATIVE (NEGATIVE); URINE KETONE NEGATIVE (NEGATIVE); URINE LEUK ESTERASE 3+ (NEGATIVE); URINE NITRITE NEGATIVE (NEGATIVE); URINE PROTEIN NEGATIVE (NEGATIVE); URINE RBC 27 /uL (0-23.9); URINE UROBILINOGEN 0.2 mg/dL (0.2-1.0); URINE WBC 1453 /uL (0-25.8)
[2023-01-17] MEDS ORDERED: METHOCARBAMOL 500 MG TABLET PO ONE (23:30)
[2023-01-17] MEDS ORDERED: METHOCARBAMOL 500 MG TABLET ONE (23:44)
[2023-01-18] MEDS ORDERED: NITROFURANTOIN MACROCRYSTAL 50 MG CAPSULE (FP) ONE (00:24)
[2023-01-18] MEDS ORDERED: NITROFURANTOIN MACROCRYSTAL 50 MG CAPSULE (FP) PO SCH (00:30)
[2023-01-18] MEDS ORDERED: LIDOCAINE PATCH REMOVAL MC ONE (11:00)
== END 2023-01-18 01:09 | disposition home or self-care (01) ==
LOC: JER 22:00
DX: M62.838 Other muscle spasm (principal); N39.0 Urinary tract infection, site not specified; M54.2 Cervicalgia; R51.9 Headache, unspecified
CPT/HCPCS: 70450-TC; 81003; 84703; 87086; 99284-25

== ENCOUNTER 2023-09-08 09:32 | Emergency (ER) | payer OTHER ==
[2023-09-08 09:37] VITALS: BP 131/74; PULSE 75; RESP 18; TEMP 98.9; BMI 29.2
[2023-09-08 10:27] LABS: HCG,QUALITATIVE URINE Negative
[2023-09-08 10:28] LABS: EPI CELLS >36 /uL (0-25.1); HYALINE CASTS 5 /uL (0-3.1); PH,URINE 5.5 (5.0-8.0); URINE APPEARANCE CLOUDY; URINE BACTERIA 483 /uL (0-1359); URINE BILIRUBIN NEGATIVE (NEGATIVE); URINE COLOR YELLOW; URINE GLUCOSE (UA) NEGATIVE (NEGATIVE); URINE KETONE NEGATIVE (NEGATIVE); URINE LEUK ESTERASE 2+ (NEGATIVE); URINE NITRITE NEGATIVE (NEGATIVE); URINE PROTEIN NEGATIVE (NEGATIVE); URINE RBC 34 /uL (0-23.9); URINE UROBILINOGEN 0.2 mg/dL (0.2-1.0); URINE WBC 141 /uL (0-25.8)
== END 2023-09-08 11:26 | disposition home or self-care (01) ==
LOC: JERFT 09:32
DX: R30.0 Dysuria (principal); R35.0 Frequency of micturition; N39.0 Urinary tract infection, site not specified
CPT/HCPCS: 81003; 84703; 87086; 99283-25